=== PATIENT | female | born 1970 | race Caucasian/White ===

== ENCOUNTER 2020-01-11 09:31 | Emergency (ER) | payer MEDICAID, OTHER ==
[~2020-01-11] VITALS: Ht 160 cm; Wt 73.0 kg
[~2020-01-11 09:31] MED LIST: CLOZ100T29 PO; LAMO150T PO; LOXA10CA PO
[2020-01-11] MEDS ORDERED: FAMO20 PO (09:57)
[2020-01-11] MEDS ORDERED: ATOR40TA28 PO (09:57)
[2020-01-11] MEDS ORDERED: CLOZ100 PO (09:57)
[2020-01-11] MEDS ORDERED: AMLO2.5T4 PO (09:57)
[2020-01-11] MEDS ORDERED: DIPH12.55 PO (09:57)
[2020-01-11] MEDS ORDERED: IBUP-2070 PO (09:58)
[2020-01-11] MEDS ORDERED: SODIUM CHLORIDE 0.9% 1,000 ML IV ONE (10:00)
[2020-01-11] MEDS ORDERED: ONDANSETRON HCL 4 MG/2 ML VIAL IVP ONE (10:15)
[2020-01-11 10:28] LABS: BASOPHILS % (AUTO) 0.6 % (0.0-2.0); EOSINOPHILS % (AUTO) 0.1 % (1.0-6.0); HEMATOCRIT 42.3 % (36-46); LYMPHOCYTES # (AUTO) 1.7 K/uL (1.0-4.8); MEAN CORPUSCULAR HEMOGLOBIN 29.7 pg (26.0-34.0); MEAN CORPUSCULAR HGB CONC 33.1 G/dL (31.0-37.0); MEAN CORPUSCULAR VOLUME 90 fL (80-100); MONOCYTES # (AUTO) 0.4 K/uL (0.1-1.0); MONOCYTES % (AUTO) 5.5 % (2.0-9.0); NEUTROPHILS # (AUTO) 5.7 K/uL (1.8-7.7); NEUTROPHILS % (AUTO) 71.8 % (40.0-70.0); PLATELET COUNT (AUTO) 276 K/uL (150-450); RED BLOOD CELL COUNT(AUTO) 4.72 MIL/uL (4.00-5.20); RED CELL DISTRIBUTION WIDTH 13.1 % (11.5-14.5)
[2020-01-11 10:42] LABS: ANION GAP 11 mmol/L (8-16); CALCIUM, TOTAL 9.5 mg/dL (8.8-10.5); CARBON DIOXIDE 22 mmol/L (22-29); CHLORIDE 103 mmol/L (98-107); CREATININE 0.95 mg/dL (0.60-1.30); GLOMERULAR FILTR. RATE CALC > 60 mL/min (>60); GLUCOSE,RANDOM 104 mg/dL (70-110); POTASSIUM 3.5 mmol/L (3.5-5.1); SODIUM SERUM 136 mmol/L (136-145); UREA NITROGEN, BLOOD 13 mg/dL (7-18)
[2020-01-11 10:45] LABS: ALANINE AMINOTRANSFERASE 20 U/L (12-78); ALKALINE PHOSPHATASE 117 U/L (46-116); ASPARTATE AMINOTRANSFERASE 12 U/L (15-37); BILIRUBIN,TOTAL 0.4 mg/dL (0.1-1.0); LIPASE 115 U/L (73-393); TOTAL PROTEIN, SERUM 7.7 g/dL (6.4-8.2)
[2020-01-11 12:22] LABS: INFLUENZA TYPE A NEGATIVE FOR TYPE A (NEGATIVE); INFLUENZA TYPE B NEGATIVE FOR TYPE B (NEGATIVE)
[2020-01-11 12:43] LABS: APPEARANCE,URINE CLOUDY (CLEAR); BILIRUBIN,URINE NEGATIVE (NEGATIVE); GLUCOSE, URINE (UA) NEGATIVE (NEGATIVE); KETONES,URINE 15 mg/dL (NEGATIVE); LEUKOCYTE ESTERASE ,URINE TRACE (NEGATIVE); NITRATE,URINE NEGATIVE (NEGATIVE); OCCULT BLOOD,URINE LARGE (NEGATIVE); PH,URINE 5.5 (5.0-8.0); PROTEIN,URINE TRACE (NEGATIVE); UROBILINOGEN,URINE 0.2 mg/dL (<=1.0)
[2020-01-11 13:05] LABS: BACTERIA,URINE Few /HPF (None Seen); RBC,URINE >100 /HPF (0-2); SQUAMOUS EPITHELIAL CELL,UR Many /LPF (None Seen); WBC,URINE 0-2 /HPF (0-5)
[2020-01-11 13:30] VITALS: BP 121/79
== END 2020-01-11 13:43 | disposition home or self-care (01) ==
LOC: EMS 09:31
DX: N94.6 Dysmenorrhea, unspecified (principal); M79.10 Myalgia, unspecified site; R19.7 Diarrhea, unspecified; R51 Headache; F20.0 Paranoid schizophrenia; Z88.6 Allergy status to analgesic agent; Z88.0 Allergy status to penicillin
CPT/HCPCS: 36415; 80053; 81001; 83690; 85025; 87804; 96361; 96374; 99283; J2405; J7030

== ENCOUNTER 2020-04-29 06:05 | Inpatient (IN) | payer MEDICAID ==
[~2020-04-29] VITALS: Ht 157.5 cm; Wt 71.5 kg
[~2020-04-29 06:05] MED LIST changes: +AMLO2.5T96 PO; +ATOR40TA28 PO; +CLOZ100T32 PO; +DIPH12.55 PO; +FAMO20 PO; +IBUP-2070 PO
[2020-04-29 13:05] VITALS: BP 105/66
[2020-04-29] MEDS ORDERED: PNEUMOCOCCAL VACCINE POLYVALENT 0.5 ML VIAL [PPSV23] IM ONE (13:45)
[2020-04-29 14:04] VITALS: BP 105/66
[2020-04-29] MEDS: GABAPENTIN 300 MG CAPSULE PO SCH (16:32)
[2020-04-29] MEDS: BENZTROPINE MESYLATE 1 MG TABLET PO SCH (16:32)
[2020-04-29] MEDS: OLANZapine 5 MG TABLET PO SCH (16:32)
[2020-04-29 18:00] VITALS: BP 110/70
[2020-04-30 03:14] VITALS: BP 99/71
[2020-04-30] MEDS: GABAPENTIN 300 MG CAPSULE PO SCH ×2 (09:23→17:29)
[2020-04-30] MEDS: BENZTROPINE MESYLATE 1 MG TABLET PO SCH ×2 (09:23→17:29)
[2020-04-30] MEDS: OLANZapine 5 MG TABLET PO SCH ×2 (09:23→17:29)
[2020-04-30] MEDS ORDERED: ONDANSETRON HCL 4 MG TABLET PO PRN (11:00)
[2020-04-30] MEDS ORDERED: DOCUSATE SODIUM 100 MG CAPSULE PO PRN (11:00)
[2020-04-30] MEDS ORDERED: CloNIDine HCL 0.1 MG TABLET PO PRN (11:00)
[2020-04-30] MEDS ORDERED: PETROLATUM,WHITE 28 GM JELLY TP PRN (11:00)
[2020-04-30] MEDS ORDERED: LOPERAMIDE HCL 2 MG CAPSULE PO PRN (11:00)
[2020-04-30] MEDS ORDERED: ALBUTEROL SULFATE HFA 90 MCG/PUFF 8 GM INHALER IH PRN (11:00)
[2020-04-30] MEDS ORDERED: NICOTINE 14 MG/24 HOUR PATCH TD PRN (11:00)
[2020-04-30] MEDS ORDERED: MAGNESIUM HYDROXIDE SUSPENSION 30 ML UDCUP PO PRN (11:00)
[2020-04-30] MEDS ORDERED: GuaiFENesin/D-METHORPHAN [SUGAR-FREE] 200-20MG/10 ML SYRUP UDCUP PO PRN (11:00)
[2020-04-30] MEDS: ACETAMINOPHEN 325 MG TABLET PO PRN (12:30)
[2020-04-30 16:20] VITALS: BP 134/81
[2020-04-30] MEDS: DiphenhydrAMINE HCL 25 MG CAPSULE PO PRN (21:53)
[2020-04-30] MEDS: HALOPERIDOL 5 MG TABLET PO PRN (21:53)
[2020-05-01 01:55] VITALS: BP 11/67
[2020-05-01] MEDS: IBUPROFEN 400 MG TABLET PO PRN (01:57)
[2020-05-01 08:00] VITALS: BP 130/82
[2020-05-01] MEDS: BENZTROPINE MESYLATE 1 MG TABLET PO SCH ×2 (09:00→17:00)
[2020-05-01] MEDS: ATORVASTATIN CALCIUM 40 MG TABLET PO SCH (09:00)
[2020-05-01] MEDS: AmLODIPine BESYLATE 2.5 MG TABLET PO SCH (09:00)
[2020-05-01] MEDS: OLANZapine 5 MG TABLET PO SCH ×2 (09:00→17:00)
[2020-05-01] MEDS: FAMOTIDINE 20 MG TABLET PO SCH (09:00)
[2020-05-01] MEDS: GABAPENTIN 300 MG CAPSULE PO SCH ×3 (09:00→18:40)
[2020-05-01 10:30] LABS: BASOPHILS % (AUTO) 0.1 % (0.0-2.0); EOSINOPHILS % (AUTO) 0 % (1.0-6.0); HEMATOCRIT 39.2 % (36-46); LYMPHOCYTES # (AUTO) 2.6 K/uL (1.0-4.8); LYMPHOCYTES % (AUTO) 43.5 % (22.0-44.0); MEAN CORPUSCULAR HEMOGLOBIN 29.3 pg (26.0-34.0); MEAN CORPUSCULAR HGB CONC 33.1 G/dL (31.0-37.0); MEAN CORPUSCULAR VOLUME 89 fL (80-100); MONOCYTES # (AUTO) 0.5 K/uL (0.1-1.0); MONOCYTES % (AUTO) 7.9 % (2.0-9.0); NEUTROPHILS # (AUTO) 2.9 K/uL (1.8-7.7); NEUTROPHILS % (AUTO) 48.5 % (40.0-70.0); PLATELET COUNT (AUTO) 324 K/uL (150-450); RED BLOOD CELL COUNT(AUTO) 4.42 MIL/uL (4.00-5.20); RED CELL DISTRIBUTION WIDTH 14.4 % (11.5-14.5)
[2020-05-01 10:58] LABS: HEMOGLOBIN A1C 5.3 % (3.8-5.6)
[2020-05-01 10:59] LABS: ALANINE AMINOTRANSFERASE 26 U/L (12-78); ALBUMIN 3.2 g/dL (3.4-5.0); ALKALINE PHOSPHATASE 76 U/L (46-116); ANION GAP 10 mmol/L (8-16); ASPARTATE AMINOTRANSFERASE 20 U/L (15-37); BILIRUBIN,TOTAL 0.6 mg/dL (0.1-1.0); CALCIUM, TOTAL 8.7 mg/dL (8.8-10.5); CARBON DIOXIDE 25 mmol/L (22-29); CHLORIDE 106 mmol/L (98-107); CHOL/HDL RATIO 3.8 (3.9-5.7); CHOLESTEROL 172 mg/dL (131-200); CREATININE 0.81 mg/dL (0.60-1.30); GLOMERULAR FILTR. RATE CALC > 60 mL/min (>60); GLUCOSE,RANDOM 94 mg/dL (70-110); HDL CHOLESTEROL 45 mg/dL (40-60); LDL CHOL (CALC.) 97 mg/dL (0-130); POTASSIUM 3.5 mmol/L (3.5-5.1); SODIUM SERUM 141 mmol/L (136-145); TOTAL PROTEIN, SERUM 6.4 g/dL (6.4-8.2); TRIGLYCERIDES 148 mg/dL (15-150); UREA NITROGEN, BLOOD 3 mg/dL (7-18)
[2020-05-02 01:10] VITALS: BP 115/88
[2020-05-02] MEDS: ACETAMINOPHEN 325 MG TABLET PO PRN (01:12)
[2020-05-02] MEDS: AmLODIPine BESYLATE 2.5 MG TABLET PO SCH (09:00)
[2020-05-02] MEDS: OLANZapine 5 MG TABLET PO SCH ×2 (09:00→16:48)
[2020-05-02] MEDS: FAMOTIDINE 20 MG TABLET PO SCH (09:00)
[2020-05-02] MEDS: GABAPENTIN 300 MG CAPSULE PO SCH ×2 (09:00→16:48)
[2020-05-02] MEDS: BENZTROPINE MESYLATE 1 MG TABLET PO SCH ×2 (09:00→16:48)
[2020-05-02] MEDS: ATORVASTATIN CALCIUM 40 MG TABLET PO SCH (09:00)
[2020-05-02] MEDS: HALOPERIDOL 5 MG TABLET PO PRN ×2 (16:48→20:53)
[2020-05-02] MEDS: DiphenhydrAMINE HCL 25 MG CAPSULE PO PRN (20:32)
[2020-05-03] MEDS: GABAPENTIN 300 MG CAPSULE PO SCH ×2 (09:35→16:29)
[2020-05-03] MEDS: OLANZapine 5 MG TABLET PO SCH ×2 (09:35→16:29)
[2020-05-03] MEDS: AmLODIPine BESYLATE 2.5 MG TABLET PO SCH (09:36)
[2020-05-03] MEDS: FAMOTIDINE 20 MG TABLET PO SCH (09:36)
[2020-05-03] MEDS: ATORVASTATIN CALCIUM 40 MG TABLET PO SCH (09:36)
[2020-05-03] MEDS: BENZTROPINE MESYLATE 1 MG TABLET PO SCH ×2 (09:36→16:29)
[2020-05-03] MEDS: ACETAMINOPHEN 325 MG TABLET PO PRN (13:15)
[2020-05-03] MEDS: HALOPERIDOL 5 MG TABLET PO PRN ×2 (15:51→19:51)
[2020-05-03] MEDS: IBUPROFEN 400 MG TABLET PO PRN (17:21)
[2020-05-03] MEDS: DiphenhydrAMINE HCL 25 MG CAPSULE PO PRN (19:12)
[2020-05-04 02:26] VITALS: BP 94/61
[2020-05-04] MEDS: ACETAMINOPHEN 325 MG TABLET PO PRN (02:26)
[2020-05-04] MEDS: DiphenhydrAMINE HCL 25 MG CAPSULE PO PRN ×2 (08:19→20:27)
[2020-05-04] MEDS: GABAPENTIN 300 MG CAPSULE PO SCH ×2 (08:19→16:59)
[2020-05-04] MEDS: ATORVASTATIN CALCIUM 40 MG TABLET PO SCH (08:19)
[2020-05-04] MEDS: AmLODIPine BESYLATE 2.5 MG TABLET PO SCH (08:19)
[2020-05-04] MEDS: HALOPERIDOL 5 MG TABLET PO PRN ×3 (08:19→21:00)
[2020-05-04] MEDS: BENZTROPINE MESYLATE 1 MG TABLET PO SCH ×2 (08:19→16:59)
[2020-05-04] MEDS: FAMOTIDINE 20 MG TABLET PO SCH (08:19)
[2020-05-04] MEDS: OLANZapine 5 MG TABLET PO SCH ×2 (08:20→16:59)
[2020-05-04 09:10] VITALS: BP 102/62
[2020-05-04 17:39] VITALS: BP 104/77
[2020-05-05] MEDS: ACETAMINOPHEN 325 MG TABLET PO PRN (03:41)
[2020-05-05 03:44] VITALS: BP 106/62
[2020-05-05] MEDS: AmLODIPine BESYLATE 2.5 MG TABLET PO SCH (09:00)
[2020-05-05] MEDS: OLANZapine 5 MG TABLET PO SCH ×2 (09:00→16:10)
[2020-05-05] MEDS: BENZTROPINE MESYLATE 1 MG TABLET PO SCH ×2 (09:00→16:10)
[2020-05-05] MEDS: GABAPENTIN 300 MG CAPSULE PO SCH ×2 (09:00→16:10)
[2020-05-05] MEDS: ATORVASTATIN CALCIUM 40 MG TABLET PO SCH (09:00)
[2020-05-05] MEDS: FAMOTIDINE 20 MG TABLET PO SCH (09:00)
[2020-05-05] MEDS: DiphenhydrAMINE HCL 50 MG/ML VIAL IM PRN (10:17)
[2020-05-05] MEDS: HALOPERIDOL LACTATE 5 MG/ML VIAL IM PRN (10:18)
[2020-05-05] MEDS: HALOPERIDOL 5 MG TABLET PO PRN ×2 (16:10→21:57)
[2020-05-05] MEDS: MAG HYDROX/AL HYDROX/SIMETH ES 30 ML SUSPENSION UDCUP PO PRN (17:51)
[2020-05-05] MEDS: DiphenhydrAMINE HCL 25 MG CAPSULE PO PRN (21:57)
[2020-05-06] MEDS: ACETAMINOPHEN 325 MG TABLET PO PRN (05:00)
[2020-05-06] MEDS: BENZTROPINE MESYLATE 1 MG TABLET PO SCH ×2 (08:34→17:00)
[2020-05-06] MEDS: GABAPENTIN 300 MG CAPSULE PO SCH ×2 (08:34→17:00)
[2020-05-06] MEDS: ATORVASTATIN CALCIUM 40 MG TABLET PO SCH (08:34)
[2020-05-06] MEDS: OLANZapine 5 MG TABLET PO SCH ×2 (08:34→17:00)
[2020-05-06] MEDS: AmLODIPine BESYLATE 2.5 MG TABLET PO SCH (08:35)
[2020-05-06] MEDS: FAMOTIDINE 20 MG TABLET PO SCH (08:35)
[2020-05-06] MEDS: IBUPROFEN 400 MG TABLET PO PRN (09:49)
[2020-05-07] MEDS: ACETAMINOPHEN 325 MG TABLET PO PRN ×2 (01:36→22:14)
[2020-05-07] MEDS: OLANZapine 5 MG TABLET PO SCH ×2 (08:53→17:00)
[2020-05-07] MEDS: HALOPERIDOL 5 MG TABLET PO PRN (08:54)
[2020-05-07] MEDS: GABAPENTIN 300 MG CAPSULE PO SCH ×2 (09:00→17:50)
[2020-05-07] MEDS: BENZTROPINE MESYLATE 1 MG TABLET PO SCH ×2 (09:00→17:00)
[2020-05-07] MEDS: FAMOTIDINE 20 MG TABLET PO SCH (09:00)
[2020-05-07] MEDS: AmLODIPine BESYLATE 2.5 MG TABLET PO SCH (09:00)
[2020-05-07] MEDS: ATORVASTATIN CALCIUM 40 MG TABLET PO SCH (09:00)
[2020-05-07 22:18] VITALS: BP 130/76
[2020-05-08] MEDS: IBUPROFEN 400 MG TABLET PO PRN (04:52)
[2020-05-08] MEDS: BENZTROPINE MESYLATE 1 MG TABLET PO SCH ×3 (09:00→16:32)
[2020-05-08] MEDS: FAMOTIDINE 20 MG TABLET PO SCH ×2 (09:00→09:10)
[2020-05-08] MEDS: ATORVASTATIN CALCIUM 40 MG TABLET PO SCH ×2 (09:00→09:11)
[2020-05-08] MEDS: AmLODIPine BESYLATE 2.5 MG TABLET PO SCH ×2 (09:00→09:11)
[2020-05-08] MEDS: OLANZapine 5 MG TABLET PO SCH ×3 (09:00→16:32)
[2020-05-08] MEDS: GABAPENTIN 300 MG CAPSULE PO SCH ×3 (09:00→16:32)
[2020-05-08] MEDS: HALOPERIDOL LACTATE 5 MG/ML VIAL IM PRN ×2 (12:36→16:33)
[2020-05-08] MEDS: DiphenhydrAMINE HCL 50 MG/ML VIAL IM PRN ×2 (12:37→23:10)
[2020-05-09] MEDS: BENZTROPINE MESYLATE 1 MG TABLET PO SCH ×3 (09:10→17:34)
[2020-05-09] MEDS: FAMOTIDINE 20 MG TABLET PO SCH (09:10)
[2020-05-09 09:11] VITALS: BP 125/90
[2020-05-09] MEDS: IBUPROFEN 400 MG TABLET PO PRN (09:11)
[2020-05-09] MEDS: OLANZapine 5 MG TABLET PO SCH ×2 (09:12→17:34)
[2020-05-09] MEDS: GABAPENTIN 300 MG CAPSULE PO SCH ×2 (09:12→17:10)
[2020-05-09] MEDS: ATORVASTATIN CALCIUM 40 MG TABLET PO SCH (09:12)
[2020-05-09] MEDS: AmLODIPine BESYLATE 2.5 MG TABLET PO SCH (09:12)
[2020-05-09] MEDS: HALOPERIDOL 5 MG TABLET PO PRN ×2 (16:50→20:50)
[2020-05-09] MEDS: DiphenhydrAMINE HCL 25 MG CAPSULE PO PRN (19:48)
[2020-05-10] MEDS: DiphenhydrAMINE HCL 25 MG CAPSULE PO PRN (02:11)
[2020-05-10] MEDS: FAMOTIDINE 20 MG TABLET PO SCH (08:10)
[2020-05-10] MEDS: GABAPENTIN 300 MG CAPSULE PO SCH ×2 (08:10→16:43)
[2020-05-10] MEDS: ATORVASTATIN CALCIUM 40 MG TABLET PO SCH (08:10)
[2020-05-10] MEDS: AmLODIPine BESYLATE 2.5 MG TABLET PO SCH (08:10)
[2020-05-10] MEDS: OLANZapine 5 MG TABLET PO SCH ×2 (08:10→16:43)
[2020-05-10 12:24] VITALS: BP 113/60
[2020-05-10 16:39] VITALS: BP 116/82
[2020-05-10] MEDS: BENZTROPINE MESYLATE 1 MG TABLET PO SCH (16:43)
[2020-05-11 00:25] VITALS: BP 104/75
[2020-05-11] MEDS: DiphenhydrAMINE HCL 25 MG CAPSULE PO PRN (00:29)
[2020-05-11] MEDS: IBUPROFEN 400 MG TABLET PO PRN (03:02)
[2020-05-11 08:00] VITALS: BP 113/68
[2020-05-11] MEDS: FAMOTIDINE 20 MG TABLET PO SCH (08:17)
[2020-05-11] MEDS: OLANZapine 5 MG TABLET PO SCH ×2 (08:17→16:25)
[2020-05-11] MEDS: ATORVASTATIN CALCIUM 40 MG TABLET PO SCH (08:17)
[2020-05-11] MEDS: GABAPENTIN 300 MG CAPSULE PO SCH ×2 (08:17→16:25)
[2020-05-11] MEDS: AmLODIPine BESYLATE 2.5 MG TABLET PO SCH (08:17)
[2020-05-11] MEDS: BENZTROPINE MESYLATE 1 MG TABLET PO SCH ×2 (08:17→16:25)
[2020-05-11 17:45] VITALS: BP 117/78
[2020-05-11] MEDS: ACETAMINOPHEN 325 MG TABLET PO PRN (19:40)
[2020-05-11 19:41] VITALS: BP 120/69
[2020-05-12 04:57] VITALS: BP 101/68
[2020-05-12] MEDS: FAMOTIDINE 20 MG TABLET PO SCH (08:06)
[2020-05-12] MEDS: ATORVASTATIN CALCIUM 40 MG TABLET PO SCH (08:06)
[2020-05-12] MEDS: GABAPENTIN 300 MG CAPSULE PO SCH ×2 (08:06→16:36)
[2020-05-12] MEDS: AmLODIPine BESYLATE 2.5 MG TABLET PO SCH (08:06)
[2020-05-12] MEDS: DiphenhydrAMINE HCL 25 MG CAPSULE PO PRN ×2 (08:07→14:09)
[2020-05-12] MEDS: OLANZapine 5 MG TABLET PO SCH ×2 (08:07→16:36)
[2020-05-12] MEDS: BENZTROPINE MESYLATE 1 MG TABLET PO SCH ×2 (08:07→16:36)
[2020-05-12] MEDS: HALOPERIDOL 5 MG TABLET PO PRN ×2 (08:07→14:09)
[2020-05-12] MEDS: IBUPROFEN 400 MG TABLET PO PRN (12:03)
[2020-05-12] MEDS ORDERED: TUBERCULIN, PURIFIED PROTEIN DERIVATIVE 5 TU/0.1 ML SYRINGE ID ONE (14:15)
[2020-05-12 16:37] VITALS: BP 115/80
[2020-05-12 21:59] VITALS: BP 130/82
[2020-05-12] MEDS: ACETAMINOPHEN 325 MG TABLET PO PRN (22:01)
[2020-05-13] MEDS: ATORVASTATIN CALCIUM 40 MG TABLET PO SCH (09:26)
[2020-05-13] MEDS: OLANZapine 5 MG TABLET PO SCH ×2 (09:26→16:26)
[2020-05-13] MEDS: GABAPENTIN 300 MG CAPSULE PO SCH ×2 (09:26→16:26)
[2020-05-13] MEDS: FAMOTIDINE 20 MG TABLET PO SCH (09:26)
[2020-05-13] MEDS: BENZTROPINE MESYLATE 1 MG TABLET PO SCH ×2 (09:27→16:26)
[2020-05-13] MEDS: AmLODIPine BESYLATE 2.5 MG TABLET PO SCH (09:27)
[2020-05-13] MEDS: HALOPERIDOL 5 MG TABLET PO PRN ×2 (16:26→20:51)
[2020-05-13] MEDS: IBUPROFEN 400 MG TABLET PO PRN (17:17)
[2020-05-13] MEDS: DiphenhydrAMINE HCL 25 MG CAPSULE PO PRN (20:50)
[2020-05-14] MEDS: FAMOTIDINE 20 MG TABLET PO SCH (08:47)
[2020-05-14] MEDS: GABAPENTIN 300 MG CAPSULE PO SCH ×2 (08:47→16:41)
[2020-05-14] MEDS: BENZTROPINE MESYLATE 1 MG TABLET PO SCH ×2 (08:48→16:41)
[2020-05-14] MEDS: ATORVASTATIN CALCIUM 40 MG TABLET PO SCH (08:48)
[2020-05-14] MEDS: OLANZapine 5 MG TABLET PO SCH ×2 (08:48→16:41)
[2020-05-14] MEDS: AmLODIPine BESYLATE 2.5 MG TABLET PO SCH (08:48)
[2020-05-14 09:20] VITALS: BP 107/72
[2020-05-14 16:00] VITALS: BP 126/78
[2020-05-14] MEDS: HALOPERIDOL 5 MG TABLET PO PRN ×2 (16:34→20:48)
[2020-05-14] MEDS: DiphenhydrAMINE HCL 25 MG CAPSULE PO PRN (20:49)
[2020-05-14] MEDS: ACETAMINOPHEN 325 MG TABLET PO PRN (22:02)
[2020-05-15] MEDS: OLANZapine 5 MG TABLET PO SCH (08:14)
[2020-05-15] MEDS: ATORVASTATIN CALCIUM 40 MG TABLET PO SCH (08:14)
[2020-05-15] MEDS: AmLODIPine BESYLATE 2.5 MG TABLET PO SCH (08:14)
[2020-05-15] MEDS: BENZTROPINE MESYLATE 1 MG TABLET PO SCH ×2 (08:14→17:00)
[2020-05-15] MEDS: GABAPENTIN 300 MG CAPSULE PO SCH ×2 (08:14→17:00)
[2020-05-15] MEDS: FAMOTIDINE 20 MG TABLET PO SCH (08:14)
[2020-05-15] MEDS: IBUPROFEN 400 MG TABLET PO PRN (08:15)
[2020-05-15] MEDS: HALOPERIDOL 5 MG TABLET PO PRN ×2 (08:15→12:33)
[2020-05-15] MEDS: DiphenhydrAMINE HCL 25 MG CAPSULE PO PRN (08:25)
[2020-05-15] MEDS: ACETAMINOPHEN 325 MG TABLET PO PRN (12:33)
[2020-05-15] MEDS: OLANZapine 10 MG TABLET PO SCH (16:59)
[2020-05-15 19:31] VITALS: BP 110/69
[2020-05-16 01:06] VITALS: BP 105/70
[2020-05-16] MEDS: HALOPERIDOL 5 MG TABLET PO PRN (01:57)
[2020-05-16] MEDS: DiphenhydrAMINE HCL 25 MG CAPSULE PO PRN ×2 (01:58→22:00)
[2020-05-16] MEDS: FAMOTIDINE 20 MG TABLET PO SCH (08:11)
[2020-05-16] MEDS: GABAPENTIN 300 MG CAPSULE PO SCH ×2 (08:11→16:37)
[2020-05-16] MEDS: ATORVASTATIN CALCIUM 40 MG TABLET PO SCH (08:11)
[2020-05-16] MEDS: BENZTROPINE MESYLATE 1 MG TABLET PO SCH ×2 (08:11→16:37)
[2020-05-16] MEDS: AmLODIPine BESYLATE 2.5 MG TABLET PO SCH (08:11)
[2020-05-16] MEDS: OLANZapine 10 MG TABLET PO SCH ×2 (08:11→16:37)
[2020-05-16 17:00] VITALS: BP 130/75
[2020-05-17 04:53] VITALS: BP 102/73
[2020-05-17] MEDS: OLANZapine 10 MG TABLET PO SCH ×2 (08:20→17:27)
[2020-05-17] MEDS: FAMOTIDINE 20 MG TABLET PO SCH (08:20)
[2020-05-17] MEDS: AmLODIPine BESYLATE 2.5 MG TABLET PO SCH (08:21)
[2020-05-17] MEDS: ATORVASTATIN CALCIUM 40 MG TABLET PO SCH (08:21)
[2020-05-17] MEDS: BENZTROPINE MESYLATE 1 MG TABLET PO SCH ×2 (08:21→17:27)
[2020-05-17] MEDS: GABAPENTIN 300 MG CAPSULE PO SCH ×2 (08:21→17:27)
[2020-05-17] MEDS: ACETAMINOPHEN 325 MG TABLET PO PRN ×2 (09:02→17:44)
[2020-05-17 16:51] VITALS: BP 103/68
[2020-05-17 17:45] VITALS: BP 110/62
[2020-05-18] MEDS: FAMOTIDINE 20 MG TABLET PO SCH (08:54)
[2020-05-18] MEDS: BENZTROPINE MESYLATE 1 MG TABLET PO SCH ×2 (08:54→16:41)
[2020-05-18] MEDS: OLANZapine 10 MG TABLET PO SCH ×2 (08:54→16:41)
[2020-05-18] MEDS: GABAPENTIN 300 MG CAPSULE PO SCH ×2 (08:54→16:41)
[2020-05-18] MEDS: ATORVASTATIN CALCIUM 40 MG TABLET PO SCH (08:54)
[2020-05-18] MEDS: AmLODIPine BESYLATE 2.5 MG TABLET PO SCH (08:55)
[2020-05-18 12:15] VITALS: BP 123/73
[2020-05-18] MEDS: ACETAMINOPHEN 325 MG TABLET PO PRN (12:15)
[2020-05-18 13:17] VITALS: BP 124/70
[2020-05-18 16:00] VITALS: BP 114/76
[2020-05-19 00:45] VITALS: BP 114/70
[2020-05-19] MEDS: ACETAMINOPHEN 325 MG TABLET PO PRN ×2 (00:50→14:25)
[2020-05-19] MEDS: ATORVASTATIN CALCIUM 40 MG TABLET PO SCH (08:31)
[2020-05-19] MEDS: BENZTROPINE MESYLATE 1 MG TABLET PO SCH ×2 (08:31→16:40)
[2020-05-19] MEDS: GABAPENTIN 300 MG CAPSULE PO SCH ×2 (08:31→16:40)
[2020-05-19] MEDS: OLANZapine 10 MG TABLET PO SCH ×2 (08:31→16:40)
[2020-05-19] MEDS: FAMOTIDINE 20 MG TABLET PO SCH (08:31)
[2020-05-19] MEDS: AmLODIPine BESYLATE 2.5 MG TABLET PO SCH (08:31)
[2020-05-19 15:25] VITALS: BP 108/80
[2020-05-19] MEDS: DiphenhydrAMINE HCL 25 MG CAPSULE PO PRN (21:54)
[2020-05-20] MEDS: BENZTROPINE MESYLATE 1 MG TABLET PO SCH ×2 (08:00→16:33)
[2020-05-20] MEDS: GABAPENTIN 300 MG CAPSULE PO SCH ×2 (08:00→16:33)
[2020-05-20] MEDS: FAMOTIDINE 20 MG TABLET PO SCH (08:00)
[2020-05-20] MEDS: AmLODIPine BESYLATE 2.5 MG TABLET PO SCH (08:00)
[2020-05-20] MEDS: ATORVASTATIN CALCIUM 40 MG TABLET PO SCH (08:00)
[2020-05-20] MEDS: OLANZapine 10 MG TABLET PO SCH ×2 (08:00→16:33)
[2020-05-20] MEDS: ACETAMINOPHEN 325 MG TABLET PO PRN (11:06)
[2020-05-20 16:15] VITALS: BP 124/81
[2020-05-21 00:21] VITALS: BP 120/77
[2020-05-21] MEDS: ACETAMINOPHEN 325 MG TABLET PO PRN (00:21)
[2020-05-21] MEDS: HALOPERIDOL 5 MG TABLET PO PRN (08:11)
[2020-05-21] MEDS: FAMOTIDINE 20 MG TABLET PO SCH (08:11)
[2020-05-21] MEDS: BENZTROPINE MESYLATE 1 MG TABLET PO SCH ×2 (08:11→16:34)
[2020-05-21] MEDS: AmLODIPine BESYLATE 2.5 MG TABLET PO SCH (08:11)
[2020-05-21] MEDS: ALPRAZolam 1 MG TABLET PO PRN (08:11)
[2020-05-21] MEDS: OLANZapine 10 MG TABLET PO SCH ×2 (08:11→16:34)
[2020-05-21] MEDS: GABAPENTIN 300 MG CAPSULE PO SCH ×2 (08:11→16:34)
[2020-05-21] MEDS: ATORVASTATIN CALCIUM 40 MG TABLET PO SCH (08:12)
[2020-05-21 09:18] VITALS: BP 111/64
[2020-05-21 16:33] VITALS: BP 119/74
[2020-05-21] MEDS: DiphenhydrAMINE HCL 25 MG CAPSULE PO PRN (20:17)
[2020-05-22] MEDS: ACETAMINOPHEN 325 MG TABLET PO PRN ×2 (01:13→16:26)
[2020-05-22 08:00] VITALS: BP 128/80
[2020-05-22] MEDS: FAMOTIDINE 20 MG TABLET PO SCH (08:25)
[2020-05-22] MEDS: BENZTROPINE MESYLATE 1 MG TABLET PO SCH ×2 (08:25→16:26)
[2020-05-22] MEDS: GABAPENTIN 300 MG CAPSULE PO SCH ×2 (08:25→16:25)
[2020-05-22] MEDS: ATORVASTATIN CALCIUM 40 MG TABLET PO SCH (08:26)
[2020-05-22] MEDS: OLANZapine 10 MG TABLET PO SCH ×2 (08:26→16:26)
[2020-05-22] MEDS: AmLODIPine BESYLATE 2.5 MG TABLET PO SCH (08:26)
[2020-05-22 17:06] VITALS: BP 116/73
[2020-05-22 19:19] VITALS: BP 122/76
[2020-05-22] MEDS: IBUPROFEN 400 MG TABLET PO PRN (19:19)
[2020-05-23] MEDS: FAMOTIDINE 20 MG TABLET PO SCH (08:06)
[2020-05-23] MEDS: OLANZapine 10 MG TABLET PO SCH ×3 (08:06→16:30)
[2020-05-23] MEDS: ATORVASTATIN CALCIUM 40 MG TABLET PO SCH (08:06)
[2020-05-23] MEDS: AmLODIPine BESYLATE 2.5 MG TABLET PO SCH (08:06)
[2020-05-23] MEDS: GABAPENTIN 300 MG CAPSULE PO SCH ×3 (08:06→16:30)
[2020-05-23] MEDS: BENZTROPINE MESYLATE 1 MG TABLET PO SCH ×3 (08:06→16:29)
[2020-05-23] MEDS: ACETAMINOPHEN 325 MG TABLET PO PRN (13:39)
[2020-05-23] MEDS: HALOPERIDOL 5 MG TABLET PO PRN ×2 (15:45→19:45)
[2020-05-23] MEDS: DiphenhydrAMINE HCL 25 MG CAPSULE PO PRN (19:11)
[2020-05-23] MEDS: IBUPROFEN 400 MG TABLET PO PRN (19:11)
[2020-05-23] MEDS: ALPRAZolam 1 MG TABLET PO PRN (21:33)
[2020-05-24 08:00] VITALS: BP 104/61
[2020-05-24] MEDS: HALOPERIDOL 5 MG TABLET PO PRN ×3 (08:07→19:44)
[2020-05-24] MEDS: AmLODIPine BESYLATE 2.5 MG TABLET PO SCH (08:07)
[2020-05-24] MEDS: BENZTROPINE MESYLATE 1 MG TABLET PO SCH ×2 (08:08→17:07)
[2020-05-24] MEDS: ALPRAZolam 1 MG TABLET PO PRN (08:08)
[2020-05-24] MEDS: GABAPENTIN 300 MG CAPSULE PO SCH ×2 (08:08→17:07)
[2020-05-24] MEDS: OLANZapine 10 MG TABLET PO SCH ×2 (08:08→17:07)
[2020-05-24] MEDS: ATORVASTATIN CALCIUM 40 MG TABLET PO SCH (08:08)
[2020-05-24] MEDS: FAMOTIDINE 20 MG TABLET PO SCH (08:08)
[2020-05-24 16:00] VITALS: BP 115/76
[2020-05-24 19:44] VITALS: BP 112/89
[2020-05-24] MEDS: IBUPROFEN 400 MG TABLET PO PRN (19:44)
[2020-05-24] MEDS: DiphenhydrAMINE HCL 25 MG CAPSULE PO PRN (19:44)
[2020-05-25 06:00] VITALS: BP 102/66
[2020-05-25] MEDS: ACETAMINOPHEN 325 MG TABLET PO PRN (06:05)
[2020-05-25] MEDS: ATORVASTATIN CALCIUM 40 MG TABLET PO SCH (08:43)
[2020-05-25] MEDS: BENZTROPINE MESYLATE 1 MG TABLET PO SCH ×2 (08:43→16:40)
[2020-05-25] MEDS: AmLODIPine BESYLATE 2.5 MG TABLET PO SCH (08:43)
[2020-05-25] MEDS: OLANZapine 10 MG TABLET PO SCH ×2 (08:43→16:40)
[2020-05-25] MEDS: FAMOTIDINE 20 MG TABLET PO SCH (08:43)
[2020-05-25] MEDS: GABAPENTIN 300 MG CAPSULE PO SCH ×2 (08:43→16:40)
[2020-05-25 17:15] VITALS: BP 105/74
[2020-05-26 00:03] VITALS: BP 115/68
[2020-05-26] MEDS: ACETAMINOPHEN 325 MG TABLET PO PRN ×2 (00:03→14:13)
[2020-05-26 08:00] VITALS: BP 127/72
[2020-05-26] MEDS: FAMOTIDINE 20 MG TABLET PO SCH (09:25)
[2020-05-26] MEDS: OLANZapine 10 MG TABLET PO SCH ×2 (09:25→16:24)
[2020-05-26] MEDS: ATORVASTATIN CALCIUM 40 MG TABLET PO SCH (09:25)
[2020-05-26] MEDS: AmLODIPine BESYLATE 2.5 MG TABLET PO SCH (09:25)
[2020-05-26] MEDS: GABAPENTIN 300 MG CAPSULE PO SCH ×2 (09:25→16:24)
[2020-05-26] MEDS: BENZTROPINE MESYLATE 1 MG TABLET PO SCH ×2 (09:25→16:24)
[2020-05-26] MEDS: HALOPERIDOL 5 MG TABLET PO PRN ×2 (16:24→20:25)
[2020-05-26 17:50] VITALS: BP 121/72
[2020-05-26] MEDS: DiphenhydrAMINE HCL 25 MG CAPSULE PO PRN (19:53)
[2020-05-26] MEDS: IBUPROFEN 400 MG TABLET PO PRN (20:09)
[2020-05-27 08:30] VITALS: BP 127/89
[2020-05-27] MEDS: FAMOTIDINE 20 MG TABLET PO SCH (08:41)
[2020-05-27] MEDS: ATORVASTATIN CALCIUM 40 MG TABLET PO SCH (08:41)
[2020-05-27] MEDS: BENZTROPINE MESYLATE 1 MG TABLET PO SCH ×2 (08:42→15:58)
[2020-05-27] MEDS: AmLODIPine BESYLATE 2.5 MG TABLET PO SCH (08:42)
[2020-05-27] MEDS: OLANZapine 10 MG TABLET PO SCH ×2 (08:42→15:58)
[2020-05-27] MEDS: GABAPENTIN 300 MG CAPSULE PO SCH ×2 (08:42→15:58)
[2020-05-27] MEDS: ACETAMINOPHEN 325 MG TABLET PO PRN ×2 (11:00→22:04)
[2020-05-27] MEDS: HALOPERIDOL 5 MG TABLET PO PRN ×2 (15:58→20:01)
[2020-05-27 16:00] VITALS: BP 118/85
[2020-05-27] MEDS: DiphenhydrAMINE HCL 25 MG CAPSULE PO PRN (18:52)
[2020-05-27] MEDS: ALPRAZolam 1 MG TABLET PO PRN (22:54)
[2020-05-28] MEDS: IBUPROFEN 400 MG TABLET PO PRN (00:05)
[2020-05-28] MEDS: HALOPERIDOL 5 MG TABLET PO PRN ×3 (00:05→20:07)
[2020-05-28 08:05] VITALS: BP 133/91
[2020-05-28] MEDS: FAMOTIDINE 20 MG TABLET PO SCH (08:20)
[2020-05-28] MEDS: BENZTROPINE MESYLATE 1 MG TABLET PO SCH ×2 (08:21→16:18)
[2020-05-28] MEDS: AmLODIPine BESYLATE 2.5 MG TABLET PO SCH (08:21)
[2020-05-28] MEDS: OLANZapine 10 MG TABLET PO SCH ×2 (08:21→16:19)
[2020-05-28] MEDS: ATORVASTATIN CALCIUM 40 MG TABLET PO SCH (08:21)
[2020-05-28] MEDS: GABAPENTIN 300 MG CAPSULE PO SCH ×2 (08:23→16:19)
[2020-05-28] MEDS: ALPRAZolam 1 MG TABLET PO PRN (08:32)
[2020-05-28 16:36] VITALS: BP 119/76
[2020-05-28] MEDS: ACETAMINOPHEN 325 MG TABLET PO PRN (20:07)
[2020-05-28] MEDS: DiphenhydrAMINE HCL 25 MG CAPSULE PO PRN (20:07)
[2020-05-29] MEDS: ALPRAZolam 1 MG TABLET PO PRN (07:49)
[2020-05-29] MEDS: GABAPENTIN 300 MG CAPSULE PO SCH ×2 (07:49→16:30)
[2020-05-29] MEDS: HALOPERIDOL 5 MG TABLET PO PRN (07:49)
[2020-05-29] MEDS: ATORVASTATIN CALCIUM 40 MG TABLET PO SCH (07:49)
[2020-05-29] MEDS: OLANZapine 10 MG TABLET PO SCH ×2 (07:49→16:30)
[2020-05-29] MEDS: BENZTROPINE MESYLATE 1 MG TABLET PO SCH ×2 (07:49→16:30)
[2020-05-29] MEDS: AmLODIPine BESYLATE 2.5 MG TABLET PO SCH (07:49)
[2020-05-29] MEDS: FAMOTIDINE 20 MG TABLET PO SCH (07:50)
[2020-05-29 09:45] VITALS: BP 113/75
[2020-05-29 16:18] VITALS: BP 99/62
[2020-05-29 23:33] VITALS: BP 100/68
[2020-05-29] MEDS: ACETAMINOPHEN 325 MG TABLET PO PRN (23:33)
[2020-05-30] MEDS: ALPRAZolam 1 MG TABLET PO PRN
[2020-05-30] MEDS: GABAPENTIN 300 MG CAPSULE PO SCH ×2 (08:41→16:11)
[2020-05-30] MEDS: OLANZapine 10 MG TABLET PO SCH ×2 (08:41→16:11)
[2020-05-30] MEDS: FAMOTIDINE 20 MG TABLET PO SCH (08:41)
[2020-05-30] MEDS: BENZTROPINE MESYLATE 1 MG TABLET PO SCH ×2 (08:41→16:11)
[2020-05-30] MEDS: ATORVASTATIN CALCIUM 40 MG TABLET PO SCH (08:41)
[2020-05-30] MEDS: AmLODIPine BESYLATE 2.5 MG TABLET PO SCH (08:41)
[2020-05-30 09:14] VITALS: BP 116/70
[2020-05-30 18:29] VITALS: BP 92/57
[2020-05-30] MEDS: DiphenhydrAMINE HCL 25 MG CAPSULE PO PRN (22:45)
[2020-05-31] MEDS: ALPRAZolam 1 MG TABLET PO PRN (01:52)
[2020-05-31] MEDS: BENZTROPINE MESYLATE 1 MG TABLET PO SCH ×2 (08:46→16:35)
[2020-05-31] MEDS: AmLODIPine BESYLATE 2.5 MG TABLET PO SCH (08:46)
[2020-05-31] MEDS: FAMOTIDINE 20 MG TABLET PO SCH (08:46)
[2020-05-31] MEDS: OLANZapine 10 MG TABLET PO SCH ×2 (08:46→16:35)
[2020-05-31] MEDS: ATORVASTATIN CALCIUM 40 MG TABLET PO SCH (08:46)
[2020-05-31] MEDS: GABAPENTIN 300 MG CAPSULE PO SCH ×2 (08:46→16:35)
[2020-05-31 09:50] VITALS: BP 112/67
[2020-05-31] MEDS: ACETAMINOPHEN 325 MG TABLET PO PRN ×2 (13:47→20:36)
[2020-05-31 16:55] VITALS: BP 106/69
[2020-05-31 20:36] VITALS: BP 108/77
[2020-05-31 20:39] VITALS: BP 108/70
[2020-06-01] MEDS: ALPRAZolam 1 MG TABLET PO PRN (00:33)
[2020-06-01] MEDS: DiphenhydrAMINE HCL 25 MG CAPSULE PO PRN (01:52)
[2020-06-01] MEDS: FAMOTIDINE 20 MG TABLET PO SCH (08:48)
[2020-06-01] MEDS: ATORVASTATIN CALCIUM 40 MG TABLET PO SCH (08:48)
[2020-06-01] MEDS: AmLODIPine BESYLATE 2.5 MG TABLET PO SCH (08:48)
[2020-06-01] MEDS: OLANZapine 10 MG TABLET PO SCH ×2 (08:48→17:00)
[2020-06-01] MEDS: GABAPENTIN 300 MG CAPSULE PO SCH ×2 (08:48→17:00)
[2020-06-01] MEDS: BENZTROPINE MESYLATE 1 MG TABLET PO SCH ×2 (08:48→17:00)
[2020-06-01 09:46] VITALS: BP 101/68
[2020-06-01] MEDS: ACETAMINOPHEN 325 MG TABLET PO PRN ×2 (09:46→21:27)
[2020-06-01 17:36] VITALS: BP 139/88
[2020-06-01 21:22] VITALS: BP 106/61
[2020-06-02] MEDS: FAMOTIDINE 20 MG TABLET PO SCH (08:51)
[2020-06-02] MEDS: ATORVASTATIN CALCIUM 40 MG TABLET PO SCH (08:51)
[2020-06-02] MEDS: OLANZapine 10 MG TABLET PO SCH ×2 (08:51→16:48)
[2020-06-02] MEDS: AmLODIPine BESYLATE 2.5 MG TABLET PO SCH (08:51)
[2020-06-02] MEDS: BENZTROPINE MESYLATE 1 MG TABLET PO SCH ×2 (08:51→16:48)
[2020-06-02] MEDS: GABAPENTIN 300 MG CAPSULE PO SCH ×2 (08:51→16:48)
[2020-06-02] MEDS: ACETAMINOPHEN 325 MG TABLET PO PRN (14:56)
[2020-06-02 16:35] VITALS: BP 129/68
[2020-06-02] MEDS: IBUPROFEN 400 MG TABLET PO PRN (20:26)
[2020-06-02 20:32] VITALS: BP 110/73
[2020-06-02] MEDS: DiphenhydrAMINE HCL 25 MG CAPSULE PO PRN (22:25)
[2020-06-03 02:05] VITALS: BP 100/72
[2020-06-03] MEDS: ACETAMINOPHEN 325 MG TABLET PO PRN ×2 (02:06→10:24)
[2020-06-03] MEDS: ATORVASTATIN CALCIUM 40 MG TABLET PO SCH (08:33)
[2020-06-03] MEDS: GABAPENTIN 300 MG CAPSULE PO SCH ×2 (08:33→17:19)
[2020-06-03] MEDS: AmLODIPine BESYLATE 2.5 MG TABLET PO SCH (08:33)
[2020-06-03] MEDS: FAMOTIDINE 20 MG TABLET PO SCH (08:33)
[2020-06-03] MEDS: BENZTROPINE MESYLATE 1 MG TABLET PO SCH ×2 (08:33→17:19)
[2020-06-03] MEDS: OLANZapine 10 MG TABLET PO SCH ×2 (08:33→17:19)
[2020-06-03 10:24] VITALS: BP 106/64
[2020-06-03] MEDS: IBUPROFEN 400 MG TABLET PO PRN (14:28)
[2020-06-03 16:30] VITALS: BP 92/58
[2020-06-04] MEDS: IBUPROFEN 400 MG TABLET PO PRN (00:15)
[2020-06-04] MEDS: ALPRAZolam 1 MG TABLET PO PRN (00:15)
[2020-06-04 01:44] VITALS: BP 104/76
[2020-06-04 08:17] VITALS: BP 99/65
[2020-06-04] MEDS: FAMOTIDINE 20 MG TABLET PO SCH (08:27)
[2020-06-04] MEDS: ATORVASTATIN CALCIUM 40 MG TABLET PO SCH (08:27)
[2020-06-04] MEDS: OLANZapine 10 MG TABLET PO SCH ×2 (08:27→16:33)
[2020-06-04] MEDS: BENZTROPINE MESYLATE 1 MG TABLET PO SCH ×2 (08:27→16:32)
[2020-06-04] MEDS: GABAPENTIN 300 MG CAPSULE PO SCH ×2 (08:27→16:32)
[2020-06-04] MEDS: AmLODIPine BESYLATE 2.5 MG TABLET PO SCH (08:28)
[2020-06-04] MEDS: ACETAMINOPHEN 325 MG TABLET PO PRN ×2 (09:17→21:30)
[2020-06-04 21:27] VITALS: BP 110/62
[2020-06-05 08:18] VITALS: BP 106/58
[2020-06-05] MEDS: ATORVASTATIN CALCIUM 40 MG TABLET PO SCH (08:23)
[2020-06-05] MEDS: GABAPENTIN 300 MG CAPSULE PO SCH ×2 (08:23→16:00)
[2020-06-05] MEDS: OLANZapine 10 MG TABLET PO SCH ×2 (08:23→16:00)
[2020-06-05] MEDS: BENZTROPINE MESYLATE 1 MG TABLET PO SCH ×2 (08:23→16:00)
[2020-06-05] MEDS: AmLODIPine BESYLATE 2.5 MG TABLET PO SCH (08:23)
[2020-06-05] MEDS: ALPRAZolam 1 MG TABLET PO PRN (08:28)
[2020-06-05] MEDS: FAMOTIDINE 20 MG TABLET PO SCH (08:43)
[2020-06-05 13:08] LABS: APPEARANCE,URINE CLEAR (CLEAR); BILIRUBIN,URINE NEGATIVE (NEGATIVE); GLUCOSE, URINE (UA) NEGATIVE (NEGATIVE); KETONES,URINE NEGATIVE (NEGATIVE); LEUKOCYTE ESTERASE ,URINE NEGATIVE (NEGATIVE); NITRATE,URINE NEGATIVE (NEGATIVE); OCCULT BLOOD,URINE NEGATIVE (NEGATIVE); PH,URINE 7.5 (5.0-8.0); PROTEIN,URINE NEGATIVE (NEGATIVE); UROBILINOGEN,URINE 0.2 mg/dL (<=1.0)
[2020-06-05] MEDS: ACETAMINOPHEN 325 MG TABLET PO PRN (18:36)
[2020-06-05 18:38] VITALS: BP 111/69
[2020-06-06] MEDS: DiphenhydrAMINE HCL 25 MG CAPSULE PO PRN (00:31)
[2020-06-06 04:04] VITALS: BP 99/62
[2020-06-06 08:00] VITALS: BP 127/80
[2020-06-06] MEDS: OLANZapine 10 MG TABLET PO SCH ×2 (09:01→16:38)
[2020-06-06] MEDS: BENZTROPINE MESYLATE 1 MG TABLET PO SCH ×2 (09:01→16:37)
[2020-06-06] MEDS: ATORVASTATIN CALCIUM 40 MG TABLET PO SCH (09:01)
[2020-06-06] MEDS: GABAPENTIN 300 MG CAPSULE PO SCH ×2 (09:01→16:38)
[2020-06-06] MEDS: FAMOTIDINE 20 MG TABLET PO SCH (09:01)
[2020-06-06] MEDS: AmLODIPine BESYLATE 2.5 MG TABLET PO SCH (09:01)
[2020-06-06] MEDS: ALPRAZolam 1 MG TABLET PO PRN (18:56)
[2020-06-07] MEDS: ALPRAZolam 1 MG TABLET PO PRN ×2 (00:03→08:05)
[2020-06-07] MEDS: AmLODIPine BESYLATE 2.5 MG TABLET PO SCH (09:10)
[2020-06-07] MEDS: FAMOTIDINE 20 MG TABLET PO SCH (09:10)
[2020-06-07] MEDS: BENZTROPINE MESYLATE 1 MG TABLET PO SCH ×2 (09:10→17:10)
[2020-06-07] MEDS: GABAPENTIN 300 MG CAPSULE PO SCH ×2 (09:10→17:10)
[2020-06-07] MEDS: OLANZapine 10 MG TABLET PO SCH ×2 (09:11→17:10)
[2020-06-07] MEDS: ATORVASTATIN CALCIUM 40 MG TABLET PO SCH (09:11)
[2020-06-07] MEDS: ACETAMINOPHEN 325 MG TABLET PO PRN (16:56)
[2020-06-08] MEDS: ALPRAZolam 1 MG TABLET PO PRN (00:27)
[2020-06-08] MEDS: DiphenhydrAMINE HCL 25 MG CAPSULE PO PRN (00:33)
[2020-06-08 00:49] VITALS: BP 90/60
[2020-06-08 08:00] VITALS: BP 103/75
[2020-06-08] MEDS: AmLODIPine BESYLATE 2.5 MG TABLET PO SCH (08:22)
[2020-06-08] MEDS: ATORVASTATIN CALCIUM 40 MG TABLET PO SCH (08:22)
[2020-06-08] MEDS: OLANZapine 10 MG TABLET PO SCH ×2 (08:22→16:28)
[2020-06-08] MEDS: FAMOTIDINE 20 MG TABLET PO SCH (08:22)
[2020-06-08] MEDS: GABAPENTIN 300 MG CAPSULE PO SCH ×2 (08:22→16:28)
[2020-06-08] MEDS: BENZTROPINE MESYLATE 1 MG TABLET PO SCH ×2 (08:22→16:28)
[2020-06-08 16:36] VITALS: BP 128/85
[2020-06-09] MEDS: ALPRAZolam 1 MG TABLET PO PRN ×3 (02:16→14:16)
[2020-06-09 02:17] VITALS: BP 102/58
[2020-06-09] MEDS: ACETAMINOPHEN 325 MG TABLET PO PRN ×2 (02:17→18:13)
[2020-06-09] MEDS: GABAPENTIN 300 MG CAPSULE PO SCH ×2 (07:52→16:24)
[2020-06-09] MEDS: ATORVASTATIN CALCIUM 40 MG TABLET PO SCH (07:52)
[2020-06-09] MEDS: OLANZapine 10 MG TABLET PO SCH ×2 (07:52→16:24)
[2020-06-09] MEDS: BENZTROPINE MESYLATE 1 MG TABLET PO SCH ×2 (07:53→16:24)
[2020-06-09] MEDS: AmLODIPine BESYLATE 2.5 MG TABLET PO SCH (07:53)
[2020-06-09] MEDS: FAMOTIDINE 20 MG TABLET PO SCH (07:54)
[2020-06-09 08:00] VITALS: BP 119/69
[2020-06-09 16:47] VITALS: BP 111/65
[2020-06-09 18:07] VITALS: BP 106/64
[2020-06-10] MEDS: ACETAMINOPHEN 325 MG TABLET PO PRN ×2 (04:58→11:10)
[2020-06-10 08:00] VITALS: BP 130/77
[2020-06-10] MEDS: BENZTROPINE MESYLATE 1 MG TABLET PO SCH ×2 (08:34→16:34)
[2020-06-10] MEDS: FAMOTIDINE 20 MG TABLET PO SCH (08:34)
[2020-06-10] MEDS: GABAPENTIN 300 MG CAPSULE PO SCH ×2 (08:34→16:33)
[2020-06-10] MEDS: OLANZapine 10 MG TABLET PO SCH ×2 (08:34→16:33)
[2020-06-10] MEDS: AmLODIPine BESYLATE 2.5 MG TABLET PO SCH (08:34)
[2020-06-10] MEDS: ATORVASTATIN CALCIUM 40 MG TABLET PO SCH (08:34)
[2020-06-10 11:10] VITALS: BP 126/74
[2020-06-10] MEDS: ALPRAZolam 1 MG TABLET PO PRN (11:10)
[2020-06-10 16:00] VITALS: BP 101/62
[2020-06-11] MEDS: ALPRAZolam 1 MG TABLET PO PRN ×2 (02:15→21:04)
[2020-06-11 02:16] VITALS: BP 92/58
[2020-06-11] MEDS: GABAPENTIN 300 MG CAPSULE PO SCH ×2 (08:21→16:44)
[2020-06-11] MEDS: BENZTROPINE MESYLATE 1 MG TABLET PO SCH ×2 (08:21→16:44)
[2020-06-11] MEDS: ATORVASTATIN CALCIUM 40 MG TABLET PO SCH (08:21)
[2020-06-11] MEDS: OLANZapine 10 MG TABLET PO SCH ×2 (08:21→16:44)
[2020-06-11] MEDS: AmLODIPine BESYLATE 2.5 MG TABLET PO SCH (08:21)
[2020-06-11] MEDS: FAMOTIDINE 20 MG TABLET PO SCH (08:21)
[2020-06-11] MEDS: ACETAMINOPHEN 325 MG TABLET PO PRN (14:53)
[2020-06-11 16:23] VITALS: BP 101/62
[2020-06-12] MEDS: OLANZapine 10 MG TABLET PO SCH ×2 (09:12→16:26)
[2020-06-12] MEDS: GABAPENTIN 300 MG CAPSULE PO SCH ×2 (09:12→16:26)
[2020-06-12] MEDS: AmLODIPine BESYLATE 2.5 MG TABLET PO SCH (09:12)
[2020-06-12] MEDS: ATORVASTATIN CALCIUM 40 MG TABLET PO SCH (09:12)
[2020-06-12] MEDS: FAMOTIDINE 20 MG TABLET PO SCH (09:12)
[2020-06-12] MEDS: BENZTROPINE MESYLATE 1 MG TABLET PO SCH ×2 (09:12→16:26)
[2020-06-12 17:12] VITALS: BP 104/65
[2020-06-12] MEDS: ACETAMINOPHEN 325 MG TABLET PO PRN (21:01)
[2020-06-13 04:50] VITALS: BP 94/68
[2020-06-13] MEDS: GABAPENTIN 300 MG CAPSULE PO SCH ×2 (08:24→16:56)
[2020-06-13] MEDS: FAMOTIDINE 20 MG TABLET PO SCH (08:24)
[2020-06-13] MEDS: OLANZapine 10 MG TABLET PO SCH ×2 (08:24→16:56)
[2020-06-13] MEDS: ATORVASTATIN CALCIUM 40 MG TABLET PO SCH (08:24)
[2020-06-13] MEDS: BENZTROPINE MESYLATE 1 MG TABLET PO SCH ×2 (08:24→16:56)
[2020-06-13] MEDS: AmLODIPine BESYLATE 2.5 MG TABLET PO SCH (08:27)
[2020-06-13] MEDS: ALPRAZolam 1 MG TABLET PO PRN (08:29)
[2020-06-13 09:45] VITALS: BP 107/75
[2020-06-13] MEDS: ACETAMINOPHEN 325 MG TABLET PO PRN (12:14)
[2020-06-13 17:21] VITALS: BP 99/72
[2020-06-13 20:30] VITALS: BP 105/68
[2020-06-14] MEDS: ALPRAZolam 1 MG TABLET PO PRN ×3 (01:08→16:19)
[2020-06-14 01:10] VITALS: BP 90/59
[2020-06-14 08:17] VITALS: BP 111/72
[2020-06-14] MEDS: AmLODIPine BESYLATE 2.5 MG TABLET PO SCH (08:38)
[2020-06-14] MEDS: ATORVASTATIN CALCIUM 40 MG TABLET PO SCH (08:38)
[2020-06-14] MEDS: FAMOTIDINE 20 MG TABLET PO SCH (08:38)
[2020-06-14] MEDS: GABAPENTIN 300 MG CAPSULE PO SCH ×2 (08:38→17:12)
[2020-06-14] MEDS: BENZTROPINE MESYLATE 1 MG TABLET PO SCH ×2 (08:38→17:12)
[2020-06-14] MEDS: OLANZapine 10 MG TABLET PO SCH ×2 (08:38→17:12)
[2020-06-14 16:28] VITALS: BP 133/85
[2020-06-15] MEDS: GABAPENTIN 300 MG CAPSULE PO SCH ×2 (08:45→16:26)
[2020-06-15] MEDS: FAMOTIDINE 20 MG TABLET PO SCH (08:45)
[2020-06-15] MEDS: BENZTROPINE MESYLATE 1 MG TABLET PO SCH ×2 (08:45→16:25)
[2020-06-15] MEDS: OLANZapine 10 MG TABLET PO SCH ×2 (08:45→16:26)
[2020-06-15] MEDS: AmLODIPine BESYLATE 2.5 MG TABLET PO SCH (08:45)
[2020-06-15] MEDS: ATORVASTATIN CALCIUM 40 MG TABLET PO SCH (08:45)
[2020-06-15] MEDS: ALPRAZolam 1 MG TABLET PO PRN (08:45)
[2020-06-15 16:57] VITALS: BP 109/71
[2020-06-16] MEDS: ALPRAZolam 1 MG TABLET PO PRN ×2 (00:30→19:39)
[2020-06-16 00:31] VITALS: BP 95/64
[2020-06-16 08:02] VITALS: BP 129/79
[2020-06-16] MEDS: ACETAMINOPHEN 325 MG TABLET PO PRN ×2 (08:12→20:29)
[2020-06-16] MEDS: ATORVASTATIN CALCIUM 40 MG TABLET PO SCH (09:45)
[2020-06-16] MEDS: GABAPENTIN 300 MG CAPSULE PO SCH ×2 (09:45→16:40)
[2020-06-16] MEDS: FAMOTIDINE 20 MG TABLET PO SCH (09:45)
[2020-06-16] MEDS: BENZTROPINE MESYLATE 1 MG TABLET PO SCH ×2 (09:45→16:40)
[2020-06-16] MEDS: AmLODIPine BESYLATE 2.5 MG TABLET PO SCH (09:45)
[2020-06-16] MEDS: OLANZapine 10 MG TABLET PO SCH ×2 (09:45→16:40)
[2020-06-16 16:00] VITALS: BP 113/60
[2020-06-17] MEDS: BENZTROPINE MESYLATE 1 MG TABLET PO SCH ×2 (08:58→17:44)
[2020-06-17] MEDS: ATORVASTATIN CALCIUM 40 MG TABLET PO SCH (08:58)
[2020-06-17] MEDS: FAMOTIDINE 20 MG TABLET PO SCH (08:58)
[2020-06-17] MEDS: OLANZapine 10 MG TABLET PO SCH ×2 (08:58→17:44)
[2020-06-17] MEDS: GABAPENTIN 300 MG CAPSULE PO SCH ×2 (08:58→17:44)
[2020-06-17] MEDS: AmLODIPine BESYLATE 2.5 MG TABLET PO SCH (09:00)
[2020-06-17 09:23] VITALS: BP 91/59
[2020-06-17] MEDS: ALPRAZolam 1 MG TABLET PO PRN (12:30)
[2020-06-17 16:38] VITALS: BP 109/59
[2020-06-18] MEDS: ACETAMINOPHEN 325 MG TABLET PO PRN ×3 (00:04→22:56)
[2020-06-18 01:04] VITALS: BP 94/63
[2020-06-18] MEDS: FAMOTIDINE 20 MG TABLET PO SCH (08:24)
[2020-06-18] MEDS: ATORVASTATIN CALCIUM 40 MG TABLET PO SCH (08:24)
[2020-06-18] MEDS: BENZTROPINE MESYLATE 1 MG TABLET PO SCH ×2 (08:24→16:38)
[2020-06-18] MEDS: AmLODIPine BESYLATE 2.5 MG TABLET PO SCH (08:24)
[2020-06-18] MEDS: GABAPENTIN 300 MG CAPSULE PO SCH ×2 (08:24→16:38)
[2020-06-18] MEDS: ALPRAZolam 1 MG TABLET PO PRN (08:24)
[2020-06-18] MEDS: OLANZapine 10 MG TABLET PO SCH ×2 (08:24→16:38)
[2020-06-18 09:51] VITALS: BP 113/67
[2020-06-18] MEDS: HALOPERIDOL 5 MG TABLET PO PRN (16:38)
[2020-06-18 16:51] VITALS: BP 101/68
[2020-06-18] MEDS: MAG HYDROX/AL HYDROX/SIMETH ES 30 ML SUSPENSION UDCUP PO PRN (21:52)
[2020-06-18 22:52] VITALS: BP 102/66
[2020-06-19] MEDS: FAMOTIDINE 20 MG TABLET PO SCH (08:22)
[2020-06-19] MEDS: OLANZapine 10 MG TABLET PO SCH ×2 (08:22→17:33)
[2020-06-19] MEDS: GABAPENTIN 300 MG CAPSULE PO SCH ×2 (08:23→17:33)
[2020-06-19] MEDS: BENZTROPINE MESYLATE 1 MG TABLET PO SCH ×2 (08:23→17:33)
[2020-06-19] MEDS: AmLODIPine BESYLATE 2.5 MG TABLET PO SCH (08:23)
[2020-06-19] MEDS: ATORVASTATIN CALCIUM 40 MG TABLET PO SCH (08:23)
[2020-06-19 08:26] VITALS: BP 106/72
[2020-06-19] MEDS: ACETAMINOPHEN 325 MG TABLET PO PRN ×2 (08:26→21:40)
[2020-06-19 17:00] VITALS: BP 145/89
[2020-06-19] MEDS: MAG HYDROX/AL HYDROX/SIMETH ES 30 ML SUSPENSION UDCUP PO PRN (20:32)
[2020-06-20 08:00] VITALS: BP 101/67
[2020-06-20] MEDS: BENZTROPINE MESYLATE 1 MG TABLET PO SCH ×2 (08:34→16:15)
[2020-06-20] MEDS: GABAPENTIN 300 MG CAPSULE PO SCH ×2 (08:34→16:16)
[2020-06-20] MEDS: AmLODIPine BESYLATE 2.5 MG TABLET PO SCH (08:34)
[2020-06-20] MEDS: FAMOTIDINE 20 MG TABLET PO SCH (08:34)
[2020-06-20] MEDS: OLANZapine 10 MG TABLET PO SCH ×2 (08:34→16:16)
[2020-06-20] MEDS: ATORVASTATIN CALCIUM 40 MG TABLET PO SCH (08:34)
[2020-06-20] MEDS: ALPRAZolam 1 MG TABLET PO PRN (08:34)
[2020-06-20] MEDS: MAG HYDROX/AL HYDROX/SIMETH ES 30 ML SUSPENSION UDCUP PO PRN (15:42)
[2020-06-20 17:00] VITALS: BP 120/75
[2020-06-21] MEDS: ALPRAZolam 1 MG TABLET PO PRN ×2 (00:12→08:14)
[2020-06-21 08:00] VITALS: BP 118/70
[2020-06-21] MEDS: BENZTROPINE MESYLATE 1 MG TABLET PO SCH ×2 (08:14→16:07)
[2020-06-21] MEDS: OLANZapine 10 MG TABLET PO SCH ×2 (08:14→16:07)
[2020-06-21] MEDS: AmLODIPine BESYLATE 2.5 MG TABLET PO SCH (08:14)
[2020-06-21] MEDS: FAMOTIDINE 20 MG TABLET PO SCH (08:14)
[2020-06-21] MEDS: GABAPENTIN 300 MG CAPSULE PO SCH ×2 (08:15→16:08)
[2020-06-21] MEDS: ATORVASTATIN CALCIUM 40 MG TABLET PO SCH (08:15)
[2020-06-21] MEDS: ACETAMINOPHEN 325 MG TABLET PO PRN ×2 (09:24→19:50)
[2020-06-21] MEDS: MAG HYDROX/AL HYDROX/SIMETH ES 30 ML SUSPENSION UDCUP PO PRN (16:42)
[2020-06-21 16:45] VITALS: BP 117/71
[2020-06-22 01:26] VITALS: BP 105/69
[2020-06-22] MEDS: FAMOTIDINE 20 MG TABLET PO SCH (08:37)
[2020-06-22] MEDS: GABAPENTIN 300 MG CAPSULE PO SCH ×2 (08:37→16:15)
[2020-06-22] MEDS: AmLODIPine BESYLATE 2.5 MG TABLET PO SCH (08:37)
[2020-06-22] MEDS: BENZTROPINE MESYLATE 1 MG TABLET PO SCH ×2 (08:37→16:15)
[2020-06-22] MEDS: OLANZapine 10 MG TABLET PO SCH ×2 (08:37→16:15)
[2020-06-22] MEDS: ATORVASTATIN CALCIUM 40 MG TABLET PO SCH (08:37)
[2020-06-22 17:14] VITALS: BP 112/71
[2020-06-22] MEDS: ACETAMINOPHEN 325 MG TABLET PO PRN (19:40)
[2020-06-22] MEDS: ALPRAZolam 1 MG TABLET PO PRN (22:46)
[2020-06-23] MEDS: ACETAMINOPHEN 325 MG TABLET PO PRN ×2 (04:10→16:30)
[2020-06-23 04:11] VITALS: BP 115/78
[2020-06-23] MEDS: ATORVASTATIN CALCIUM 40 MG TABLET PO SCH (07:59)
[2020-06-23] MEDS: FAMOTIDINE 20 MG TABLET PO SCH (07:59)
[2020-06-23] MEDS: AmLODIPine BESYLATE 2.5 MG TABLET PO SCH (07:59)
[2020-06-23] MEDS: OLANZapine 10 MG TABLET PO SCH ×2 (07:59→16:27)
[2020-06-23] MEDS: BENZTROPINE MESYLATE 1 MG TABLET PO SCH ×2 (07:59→16:27)
[2020-06-23] MEDS: GABAPENTIN 300 MG CAPSULE PO SCH ×2 (07:59→16:27)
[2020-06-23 08:18] VITALS: BP 150/81
[2020-06-23] MEDS: MAG HYDROX/AL HYDROX/SIMETH ES 30 ML SUSPENSION UDCUP PO PRN (14:23)
[2020-06-23] MEDS: ALPRAZolam 1 MG TABLET PO PRN (16:29)
[2020-06-23 16:56] VITALS: BP 110/65
[2020-06-24] MEDS: ACETAMINOPHEN 325 MG TABLET PO PRN ×3 (03:25→23:59)
[2020-06-24] MEDS: BENZTROPINE MESYLATE 1 MG TABLET PO SCH ×2 (08:42→15:59)
[2020-06-24] MEDS: AmLODIPine BESYLATE 2.5 MG TABLET PO SCH (08:42)
[2020-06-24] MEDS: OLANZapine 10 MG TABLET PO SCH ×2 (08:42→15:59)
[2020-06-24] MEDS: GABAPENTIN 300 MG CAPSULE PO SCH ×2 (08:42→15:59)
[2020-06-24] MEDS: ATORVASTATIN CALCIUM 40 MG TABLET PO SCH (08:42)
[2020-06-24] MEDS: FAMOTIDINE 20 MG TABLET PO SCH (08:43)
[2020-06-24 13:46] VITALS: BP 126/77
[2020-06-24] MEDS: MAG HYDROX/AL HYDROX/SIMETH ES 30 ML SUSPENSION UDCUP PO PRN (15:56)
[2020-06-24 17:01] VITALS: BP 113/64
[2020-06-24] MEDS: ALPRAZolam 1 MG TABLET PO PRN (20:00)
[2020-06-25] MEDS: FAMOTIDINE 20 MG TABLET PO SCH (08:32)
[2020-06-25] MEDS: OLANZapine 10 MG TABLET PO SCH ×2 (08:32→17:45)
[2020-06-25] MEDS: BENZTROPINE MESYLATE 1 MG TABLET PO SCH ×2 (08:32→17:44)
[2020-06-25] MEDS: GABAPENTIN 300 MG CAPSULE PO SCH ×2 (08:32→17:45)
[2020-06-25] MEDS: AmLODIPine BESYLATE 2.5 MG TABLET PO SCH (08:33)
[2020-06-25] MEDS: ATORVASTATIN CALCIUM 40 MG TABLET PO SCH (08:33)
[2020-06-25] MEDS: ALPRAZolam 1 MG TABLET PO PRN (08:36)
[2020-06-25] MEDS: ACETAMINOPHEN 325 MG TABLET PO PRN (08:36)
[2020-06-26 00:30] VITALS: BP 103/69
[2020-06-26] MEDS: ALPRAZolam 1 MG TABLET PO PRN ×2 (00:34→08:09)
[2020-06-26] MEDS: ACETAMINOPHEN 325 MG TABLET PO PRN ×2 (00:36→18:07)
[2020-06-26] MEDS: OLANZapine 10 MG TABLET PO SCH ×2 (08:09→16:16)
[2020-06-26] MEDS: ATORVASTATIN CALCIUM 40 MG TABLET PO SCH (08:09)
[2020-06-26] MEDS: GABAPENTIN 300 MG CAPSULE PO SCH ×2 (08:09→16:16)
[2020-06-26] MEDS: AmLODIPine BESYLATE 2.5 MG TABLET PO SCH (08:09)
[2020-06-26] MEDS: BENZTROPINE MESYLATE 1 MG TABLET PO SCH ×2 (08:09→16:16)
[2020-06-26] MEDS: FAMOTIDINE 20 MG TABLET PO SCH (08:09)
[2020-06-26 18:01] VITALS: BP 95/72
[2020-06-26] MEDS: MAG HYDROX/AL HYDROX/SIMETH ES 30 ML SUSPENSION UDCUP PO PRN (21:04)
[2020-06-26] MEDS: DiphenhydrAMINE HCL 25 MG CAPSULE PO PRN (21:59)
[2020-06-27] MEDS: FAMOTIDINE 20 MG TABLET PO SCH (08:02)
[2020-06-27] MEDS: BENZTROPINE MESYLATE 1 MG TABLET PO SCH ×2 (08:02→16:32)
[2020-06-27] MEDS: GABAPENTIN 300 MG CAPSULE PO SCH ×2 (08:02→16:32)
[2020-06-27] MEDS: ATORVASTATIN CALCIUM 40 MG TABLET PO SCH (08:02)
[2020-06-27] MEDS: OLANZapine 10 MG TABLET PO SCH ×2 (08:02→16:32)
[2020-06-27] MEDS: AmLODIPine BESYLATE 2.5 MG TABLET PO SCH (08:02)
[2020-06-27 08:53] VITALS: BP 124/70
[2020-06-27] MEDS: MAG HYDROX/AL HYDROX/SIMETH ES 30 ML SUSPENSION UDCUP PO PRN (14:21)
[2020-06-27] MEDS: ACETAMINOPHEN 325 MG TABLET PO PRN (21:15)
[2020-06-27 21:16] VITALS: BP 99/66
[2020-06-28] MEDS: ALPRAZolam 1 MG TABLET PO PRN (00:43)
[2020-06-28 00:44] VITALS: BP 100/54
[2020-06-28] MEDS: OLANZapine 10 MG TABLET PO SCH ×2 (09:09→16:23)
[2020-06-28] MEDS: BENZTROPINE MESYLATE 1 MG TABLET PO SCH ×2 (09:09→16:23)
[2020-06-28] MEDS: AmLODIPine BESYLATE 2.5 MG TABLET PO SCH (09:10)
[2020-06-28] MEDS: FAMOTIDINE 20 MG TABLET PO SCH (09:10)
[2020-06-28] MEDS: GABAPENTIN 300 MG CAPSULE PO SCH ×2 (09:10→16:23)
[2020-06-28] MEDS: ATORVASTATIN CALCIUM 40 MG TABLET PO SCH (09:10)
[2020-06-28 10:32] VITALS: BP 121/74
[2020-06-28] MEDS: ACETAMINOPHEN 325 MG TABLET PO PRN (14:22)
[2020-06-28 14:23] VITALS: BP 122/77
[2020-06-28 15:27] VITALS: BP 123/76
[2020-06-29] MEDS: AmLODIPine BESYLATE 2.5 MG TABLET PO SCH (08:08)
[2020-06-29] MEDS: GABAPENTIN 300 MG CAPSULE PO SCH ×2 (08:08→16:30)
[2020-06-29] MEDS: ATORVASTATIN CALCIUM 40 MG TABLET PO SCH (08:08)
[2020-06-29] MEDS: BENZTROPINE MESYLATE 1 MG TABLET PO SCH ×2 (08:08→16:30)
[2020-06-29] MEDS: OLANZapine 10 MG TABLET PO SCH ×2 (08:08→16:30)
[2020-06-29] MEDS: FAMOTIDINE 20 MG TABLET PO SCH (08:08)
[2020-06-29 09:58] VITALS: BP 122/83
[2020-06-29] MEDS: ACETAMINOPHEN 325 MG TABLET PO PRN (13:46)
[2020-06-29 13:48] VITALS: BP 114/68
[2020-06-29 14:46] VITALS: BP 116/72
[2020-06-29 16:41] VITALS: BP 113/79
[2020-06-29] MEDS: ALPRAZolam 1 MG TABLET PO PRN (22:03)
[2020-06-30] MEDS: FAMOTIDINE 20 MG TABLET PO SCH (08:44)
[2020-06-30] MEDS: GABAPENTIN 300 MG CAPSULE PO SCH ×2 (08:44→16:14)
[2020-06-30] MEDS: ATORVASTATIN CALCIUM 40 MG TABLET PO SCH (08:44)
[2020-06-30] MEDS: BENZTROPINE MESYLATE 1 MG TABLET PO SCH ×2 (08:45→16:14)
[2020-06-30] MEDS: AmLODIPine BESYLATE 2.5 MG TABLET PO SCH (08:45)
[2020-06-30] MEDS: OLANZapine 10 MG TABLET PO SCH ×2 (08:45→16:14)
[2020-06-30 11:02] VITALS: BP 117/83
[2020-06-30 16:12] LABS: BASOPHILS % (AUTO) 0.1 % (0.0-2.0); EOSINOPHILS % (AUTO) 0 % (1.0-6.0); HEMATOCRIT 36.6 % (36-46); HEMOGLOBIN 12.4 g/dL (12.0-16.0); LYMPHOCYTES # (AUTO) 2.9 K/uL (1.0-4.8); LYMPHOCYTES % (AUTO) 38.1 % (22.0-44.0); MEAN CORPUSCULAR HEMOGLOBIN 30.3 pg (26.0-34.0); MEAN CORPUSCULAR HGB CONC 33.9 G/dL (31.0-37.0); MEAN CORPUSCULAR VOLUME 89 fL (80-100); MONOCYTES # (AUTO) 0.6 K/uL (0.1-1.0); MONOCYTES % (AUTO) 8.5 % (2.0-9.0); NEUTROPHILS % (AUTO) 53.3 % (40.0-70.0); PLATELET COUNT (AUTO) 309 K/uL (150-450); RED CELL DISTRIBUTION WIDTH 13.2 % (11.5-14.5)
[2020-06-30] MEDS: ACETAMINOPHEN 325 MG TABLET PO PRN (19:04)
[2020-06-30] MEDS: ALPRAZolam 1 MG TABLET PO PRN (21:28)
[2020-07-01] MEDS: GABAPENTIN 300 MG CAPSULE PO SCH ×2 (08:28→16:37)
[2020-07-01] MEDS: OLANZapine 10 MG TABLET PO SCH ×2 (08:28→16:37)
[2020-07-01] MEDS: FAMOTIDINE 20 MG TABLET PO SCH (08:28)
[2020-07-01] MEDS: ATORVASTATIN CALCIUM 40 MG TABLET PO SCH (08:28)
[2020-07-01] MEDS: AmLODIPine BESYLATE 2.5 MG TABLET PO SCH (08:29)
[2020-07-01] MEDS: BENZTROPINE MESYLATE 1 MG TABLET PO SCH ×2 (08:29→16:37)
[2020-07-01 08:41] VITALS: BP 131/81
[2020-07-01] MEDS: MAG HYDROX/AL HYDROX/SIMETH ES 30 ML SUSPENSION UDCUP PO PRN (09:42)
[2020-07-01] MEDS: ACETAMINOPHEN 325 MG TABLET PO PRN ×2 (12:32→23:42)
[2020-07-01] MEDS ORDERED: CloZAPine 25 MG TABLET PO SCH (13:45)
[2020-07-01 16:51] VITALS: BP 131/78
[2020-07-01] MEDS: ALPRAZolam 1 MG TABLET PO PRN (19:45)
[2020-07-02] MEDS: MAG HYDROX/AL HYDROX/SIMETH ES 30 ML SUSPENSION UDCUP PO PRN (02:01)
[2020-07-02] MEDS: ALPRAZolam 1 MG TABLET PO PRN ×3 (02:34→22:14)
[2020-07-02 06:55] LABS: BASOPHILS % (AUTO) 0.3 % (0.0-2.0); EOSINOPHILS % (AUTO) 0 % (1.0-6.0); HEMATOCRIT 36.6 % (36-46); HEMOGLOBIN 12.6 g/dL (12.0-16.0); LYMPHOCYTES # (AUTO) 2.1 K/uL (1.0-4.8); LYMPHOCYTES % (AUTO) 34.1 % (22.0-44.0); MEAN CORPUSCULAR HEMOGLOBIN 30.7 pg (26.0-34.0); MEAN CORPUSCULAR HGB CONC 34.5 G/dL (31.0-37.0); MEAN CORPUSCULAR VOLUME 89 fL (80-100); MONOCYTES # (AUTO) 0.5 K/uL (0.1-1.0); MONOCYTES % (AUTO) 7.3 % (2.0-9.0); NEUTROPHILS # (AUTO) 3.6 K/uL (1.8-7.7); NEUTROPHILS % (AUTO) 58.3 % (40.0-70.0); PLATELET COUNT (AUTO) 285 K/uL (150-450); RED BLOOD CELL COUNT(AUTO) 4.12 MIL/uL (4.00-5.20); RED CELL DISTRIBUTION WIDTH 13.1 % (11.5-14.5)
[2020-07-02 08:00] VITALS: BP 119/73
[2020-07-02] MEDS: GABAPENTIN 300 MG CAPSULE PO SCH ×2 (08:37→16:33)
[2020-07-02] MEDS: ATORVASTATIN CALCIUM 40 MG TABLET PO SCH (08:37)
[2020-07-02] MEDS: FAMOTIDINE 20 MG TABLET PO SCH (08:37)
[2020-07-02] MEDS: BENZTROPINE MESYLATE 1 MG TABLET PO SCH ×2 (08:37→16:33)
[2020-07-02] MEDS: OLANZapine 10 MG TABLET PO SCH ×2 (08:37→16:33)
[2020-07-02] MEDS: AmLODIPine BESYLATE 2.5 MG TABLET PO SCH (08:37)
[2020-07-02] MEDS ORDERED: CloZAPine 25 MG TABLET PO SCH ×2 (09:00→21:00)
[2020-07-02 17:09] VITALS: BP 106/73
[2020-07-02 21:31] VITALS: BP 139/80
[2020-07-02] MEDS: ACETAMINOPHEN 325 MG TABLET PO PRN (21:38)
[2020-07-03 03:19] VITALS: BP 105/70
[2020-07-03] MEDS: ATORVASTATIN CALCIUM 40 MG TABLET PO SCH (08:09)
[2020-07-03] MEDS: FAMOTIDINE 20 MG TABLET PO SCH (08:09)
[2020-07-03] MEDS: OLANZapine 10 MG TABLET PO SCH ×2 (08:09→16:03)
[2020-07-03] MEDS: GABAPENTIN 300 MG CAPSULE PO SCH ×2 (08:09→16:03)
[2020-07-03] MEDS: AmLODIPine BESYLATE 2.5 MG TABLET PO SCH (08:10)
[2020-07-03] MEDS: BENZTROPINE MESYLATE 1 MG TABLET PO SCH ×2 (08:10→16:03)
[2020-07-03] MEDS ORDERED: CloZAPine 25 MG TABLET PO SCH ×2 (09:00→21:00)
[2020-07-03 10:36] VITALS: BP 122/70
[2020-07-03] MEDS: ACETAMINOPHEN 325 MG TABLET PO PRN ×2 (10:36→20:07)
[2020-07-03] MEDS: MAG HYDROX/AL HYDROX/SIMETH ES 30 ML SUSPENSION UDCUP PO PRN (16:17)
[2020-07-03] MEDS: ALPRAZolam 1 MG TABLET PO PRN (20:41)
[2020-07-04] MEDS: ATORVASTATIN CALCIUM 40 MG TABLET PO SCH (08:30)
[2020-07-04] MEDS: OLANZapine 10 MG TABLET PO SCH ×2 (08:30→16:59)
[2020-07-04] MEDS: BENZTROPINE MESYLATE 1 MG TABLET PO SCH ×2 (08:30→16:59)
[2020-07-04] MEDS: CloZAPine 25 MG TABLET PO SCH ×2 (08:30→20:09)
[2020-07-04] MEDS: FAMOTIDINE 20 MG TABLET PO SCH (08:30)
[2020-07-04] MEDS: ALPRAZolam 1 MG TABLET PO PRN ×2 (08:31→21:16)
[2020-07-04] MEDS: GABAPENTIN 300 MG CAPSULE PO SCH ×2 (08:31→16:59)
[2020-07-04] MEDS: AmLODIPine BESYLATE 2.5 MG TABLET PO SCH (08:31)
[2020-07-04] MEDS: ACETAMINOPHEN 325 MG TABLET PO PRN ×2 (08:31→18:49)
[2020-07-05 08:00] VITALS: BP 133/84
[2020-07-05] MEDS: FAMOTIDINE 20 MG TABLET PO SCH (08:22)
[2020-07-05] MEDS: BENZTROPINE MESYLATE 1 MG TABLET PO SCH ×2 (08:22→16:26)
[2020-07-05] MEDS: OLANZapine 10 MG TABLET PO SCH ×2 (08:22→16:26)
[2020-07-05] MEDS: GABAPENTIN 300 MG CAPSULE PO SCH ×2 (08:22→16:26)
[2020-07-05] MEDS: AmLODIPine BESYLATE 2.5 MG TABLET PO SCH (08:22)
[2020-07-05] MEDS: ATORVASTATIN CALCIUM 40 MG TABLET PO SCH (08:22)
[2020-07-05] MEDS: CloZAPine 25 MG TABLET PO SCH ×2 (08:22→20:14)
[2020-07-05] MEDS: MAG HYDROX/AL HYDROX/SIMETH ES 30 ML SUSPENSION UDCUP PO PRN (16:40)
[2020-07-05] MEDS: ALPRAZolam 1 MG TABLET PO PRN (17:54)
[2020-07-05 19:26] VITALS: BP 108/65
[2020-07-05] MEDS: ACETAMINOPHEN 325 MG TABLET PO PRN (19:59)
[2020-07-06] MEDS: ALPRAZolam 1 MG TABLET PO PRN ×2 (02:14→08:20)
[2020-07-06 02:16] VITALS: BP 117/73
[2020-07-06] MEDS: GABAPENTIN 300 MG CAPSULE PO SCH ×2 (08:19→16:05)
[2020-07-06] MEDS: AmLODIPine BESYLATE 2.5 MG TABLET PO SCH (08:19)
[2020-07-06] MEDS: FAMOTIDINE 20 MG TABLET PO SCH (08:19)
[2020-07-06] MEDS: ATORVASTATIN CALCIUM 40 MG TABLET PO SCH (08:19)
[2020-07-06] MEDS: OLANZapine 10 MG TABLET PO SCH ×2 (08:19→16:05)
[2020-07-06] MEDS: BENZTROPINE MESYLATE 1 MG TABLET PO SCH ×2 (08:19→16:05)
[2020-07-06] MEDS: ACETAMINOPHEN 325 MG TABLET PO PRN ×2 (08:21→19:26)
[2020-07-06] MEDS ORDERED: CloZAPine 25 MG TABLET PO SCH (09:00)
[2020-07-06] MEDS: MAG HYDROX/AL HYDROX/SIMETH ES 30 ML SUSPENSION UDCUP PO PRN ×2 (10:21→19:26)
[2020-07-06] MEDS ORDERED: CloZAPine 100 MG TABLET PO SCH (21:00)
[2020-07-07] MEDS: ALPRAZolam 1 MG TABLET PO PRN ×2 (02:58→16:48)
[2020-07-07 02:59] VITALS: BP 111/73
[2020-07-07] MEDS: ACETAMINOPHEN 325 MG TABLET PO PRN ×2 (04:43→21:12)
[2020-07-07] MEDS: ATORVASTATIN CALCIUM 40 MG TABLET PO SCH (08:18)
[2020-07-07] MEDS: FAMOTIDINE 20 MG TABLET PO SCH (08:18)
[2020-07-07] MEDS: GABAPENTIN 300 MG CAPSULE PO SCH ×2 (08:18→16:51)
[2020-07-07] MEDS: AmLODIPine BESYLATE 2.5 MG TABLET PO SCH (08:18)
[2020-07-07] MEDS: OLANZapine 10 MG TABLET PO SCH ×2 (08:18→16:51)
[2020-07-07] MEDS: BENZTROPINE MESYLATE 1 MG TABLET PO SCH ×2 (08:18→16:51)
[2020-07-07] MEDS ORDERED: CloZAPine 25 MG TABLET PO SCH (09:00)
[2020-07-07 10:00] VITALS: BP 133/81
[2020-07-07 16:30] VITALS: BP 124/69
[2020-07-07] MEDS: MAG HYDROX/AL HYDROX/SIMETH ES 30 ML SUSPENSION UDCUP PO PRN (17:02)
[2020-07-07] MEDS ORDERED: CloZAPine 100 MG TABLET PO SCH (21:00)
[2020-07-07 21:09] VITALS: BP 115/62
[2020-07-08 03:25] VITALS: BP 123/82
[2020-07-08] MEDS: ALPRAZolam 1 MG TABLET PO PRN ×2 (05:05→15:52)
[2020-07-08] MEDS: ATORVASTATIN CALCIUM 40 MG TABLET PO SCH (08:28)
[2020-07-08] MEDS: FAMOTIDINE 20 MG TABLET PO SCH (08:28)
[2020-07-08] MEDS: GABAPENTIN 300 MG CAPSULE PO SCH ×2 (08:28→15:58)
[2020-07-08] MEDS: BENZTROPINE MESYLATE 1 MG TABLET PO SCH ×2 (08:28→15:58)
[2020-07-08] MEDS: OLANZapine 10 MG TABLET PO SCH ×2 (08:28→15:58)
[2020-07-08] MEDS: AmLODIPine BESYLATE 2.5 MG TABLET PO SCH (08:28)
[2020-07-08] MEDS ORDERED: CloZAPine 25 MG TABLET PO SCH (09:00)
[2020-07-08] MEDS: ACETAMINOPHEN 325 MG TABLET PO PRN (16:45)
[2020-07-08 16:46] VITALS: BP 120/83
[2020-07-08] MEDS ORDERED: CloZAPine 100 MG TABLET PO SCH (21:00)
[2020-07-09] MEDS: ALPRAZolam 1 MG TABLET PO PRN ×3 (02:08→15:21)
[2020-07-09 06:50] LABS: BASOPHILS % (AUTO) 0.4 % (0.0-2.0); EOSINOPHILS % (AUTO) 0 % (1.0-6.0); HEMATOCRIT 35.7 % (36-46); LYMPHOCYTES # (AUTO) 1.6 K/uL (1.0-4.8); MEAN CORPUSCULAR HEMOGLOBIN 29.8 pg (26.0-34.0); MEAN CORPUSCULAR HGB CONC 33.5 G/dL (31.0-37.0); MEAN CORPUSCULAR VOLUME 89 fL (80-100); MONOCYTES # (AUTO) 0.7 K/uL (0.1-1.0); MONOCYTES % (AUTO) 9.6 % (2.0-9.0); NEUTROPHILS # (AUTO) 5.1 K/uL (1.8-7.7); PLATELET COUNT (AUTO) 281 K/uL (150-450); RED BLOOD CELL COUNT(AUTO) 4.01 MIL/uL (4.00-5.20)
[2020-07-09] MEDS: OLANZapine 10 MG TABLET PO SCH ×2 (08:44→16:15)
[2020-07-09] MEDS: GABAPENTIN 300 MG CAPSULE PO SCH ×2 (08:44→16:15)
[2020-07-09] MEDS: AmLODIPine BESYLATE 2.5 MG TABLET PO SCH (08:44)
[2020-07-09] MEDS: FAMOTIDINE 20 MG TABLET PO SCH (08:44)
[2020-07-09] MEDS: ATORVASTATIN CALCIUM 40 MG TABLET PO SCH (08:44)
[2020-07-09] MEDS: CloZAPine 100 MG TABLET PO SCH ×2 (08:44→21:24)
[2020-07-09] MEDS: BENZTROPINE MESYLATE 1 MG TABLET PO SCH ×2 (08:44→16:15)
[2020-07-09] MEDS: ACETAMINOPHEN 325 MG TABLET PO PRN ×2 (09:56→18:49)
[2020-07-09 15:30] VITALS: BP 143/94
[2020-07-09 16:46] LABS: APPEARANCE,URINE CLEAR (CLEAR); BILIRUBIN,URINE NEGATIVE (NEGATIVE); GLUCOSE, URINE (UA) NEGATIVE (NEGATIVE); KETONES,URINE NEGATIVE (NEGATIVE); LEUKOCYTE ESTERASE ,URINE NEGATIVE (NEGATIVE); NITRATE,URINE NEGATIVE (NEGATIVE); OCCULT BLOOD,URINE NEGATIVE (NEGATIVE); PH,URINE 8.5 (5.0-8.0); PROTEIN,URINE NEGATIVE (NEGATIVE); UROBILINOGEN,URINE 0.2 mg/dL (<=1.0)
[2020-07-09] MEDS ORDERED: AZITHROMYCIN 500 MG TABLET PO SCH (18:00)
[2020-07-09] MEDS ORDERED: OLAN10TA3 PO ×2 (21:27→21:28)
[2020-07-09] MEDS ORDERED: GABA-1181 PO (21:31)
[2020-07-11] MEDS ORDERED: CloZAPine 25 MG TABLET PO SCH (09:00)
[2020-07-11] MEDS ORDERED: CloZAPine 100 MG TABLET PO SCH (21:00)
[2020-07-12] MEDS ORDERED: CloZAPine 25 MG TABLET PO SCH (09:00)
[2020-07-12] MEDS ORDERED: CloZAPine 100 MG TABLET PO SCH (21:00)
[2020-07-13] MEDS ORDERED: CloZAPine 100 MG TABLET PO SCH ×2 (09:00→21:00)
== END 2020-07-09 22:30 | disposition short-term general hospital (02) | DRG 750 ==
LOC: 3EC 11:05
PROVIDERS: ADMIT Psychiatry & Neurology Psychiatry; ATTEND Psychiatry & Neurology Psychiatry
DX: F20.0 Paranoid schizophrenia (principal); J45.909 Unspecified asthma, uncomplicated; I10 Essential (primary) hypertension; E78.5 Hyperlipidemia, unspecified; G44.209 Tension-type headache, unspecified, not intractable; G40.909 Epilepsy, unspecified, not intractable, without status epilepticus; U07.1 COVID-19; Z88.6 Allergy status to analgesic agent; Z88.0 Allergy status to penicillin; Z88.8 Allergy status to other drugs, medicaments and biological substances; Z91.14 Patient's other noncompliance with medication regimen
CPT/HCPCS: 83036; 84436; 84439; 93005; J1200; J1630; 36415-L1; 36415-TC; 71046; 71046-TC; 80061-TC; 81003-TC